=== PATIENT | male | born 1985 | race Hispanic/Latino ===

== ENCOUNTER 2020-06-19 04:05 | Emergency (ER) | payer SELFPAY ==
[2020-06-19] MEDS ORDERED: IPRATROPIUM/ALBUTEROL 3 ML VIAL NEB ONE (04:37)
[2020-06-19] MEDS: SODIUM CHLORIDE 0.9% (FLUSH) 10 ML SYG IV PRN ×2 (04:37→04:42)
[2020-06-19] MEDS ORDERED: ALBUTEROL SULFATE 2.5 MG/3 ML VIAL NEB ONE (04:37)
--- NOTE | 2020-06-19 04:40 | ED.PDOC ---
History of Present Illness - General Chief Complaint: Respiratory Problem Stated Complaint: resp distress Time Seen by Provider: 06/19/20 04:36 Source: RN notes reviewed, Vital Signs reviewed, correction records Exam Limitations: clinical condition, physical impairment - Pt with a trach in place and ith anoxic branin injury and doesn't verbally communicate. - History of Present Illness Initial Comments: Patient is a 35-year-old male with an anoxic brain injury and had presented stroke the correction with complaints of tachycardia and bleeding from his trach. Patient is unable to communicate with me and therefore history of present illness and review of systems is limited. Timing/Duration: unsure Severity: mild Improving Factors: nothing Worsening Factors: nothing Associated Symptoms: cough Allergies/Adverse Reactions: Allergies NO KNOWN ALLERGY Allergy (Verified 06/19/20 04:12) Home Medications: Ambulatory Orders Acetaminophen [Pain Relief Extra Strengt] 500 mg PO PRN PRN 06/19/20 Dextromethorphan-Guaifenesin [Giltuss Cough & Chest Con 20-200 mg/10Ml] 1 liq PO PRN 06/19/20 Folic Acid 1 mg PO DAILY 06/19/20 Heparin Sodium (Porcine) [Heparin Sodium] 5,000 unit IJ TID 06/19/20 LORazepam [Ativan] 1 mg IV PRN 06/19/20 Lactulose 30 mg PO BID 06/19/20 Levetiracetam 1000 mg/100Ml 1,000 mg IV DAILY 06/19/20 Metformin HCl [Metformin Hydrochloride] 500 mg PO BID 06/19/20 Metoprolol Tartrate 50 mg PO BID 06/19/20 Pantoprazole Sodium 40 mg IV DAILY 06/19/20 Potassium Chloride [Potassium Chloride ER] 20 meq PO DAILY 06/19/20 Spironolactone 50 mg PO DAILY 06/19/20 Thiamine HCl Inj 200 mg IV DAILY 06/19/20 diltiaZEM DRIP [Cardizem Drip] 125 mg IV DAILY 06/19/20 Review of Systems - Review of Systems Constitutional: States: see HPI. Denies: chills, fever, malaise, weakness EENTM: States: other - Pannus with mild bleeding from tracheostomy site Respiratory: States: see HPI, cough, short of breath. Denies: stridor, wheezing Unable to Obtain Due To: intubated, clinical condition Past Medical History (General) - Patient Medical History Hx Congestive Heart Failure: No Hx Diabetes: Yes Family Medical History - Family History Father Hx Family Diabetes: Yes Physical Exam - Physical Exam General Appearance: Anxious, Obese, Well Developed, Well Hydrated, Well Nourished Eye Exam: bilateral abnormal EOM Ears, Nose, Throat: normal ENT inspection Neck: limited range of motion, other - Patient with a trach in place with some mild frothy pink sputum in the trach. Respiratory: respiratory distress - Mild, decreased breath sounds - Diffusely throughout, other - Patient with hiccups and intermittent respiratory pauses for 8 to 10 seconds Cardiovascular/Chest: no edema, no murmur, tachycardia Peripheral Pulses: radial,right: 2+, radial,left: 2+ Gastrointestinal/Abdominal: normal bowel sounds, non tender, distended - Patient with an umbilical hernia. Back Exam: no CVA tenderness, no vertebral tenderness Extremity: normal capillary refill, pelvis stable Neurologic: other - Patient is noncommunicative. He will open his eyes to noxious stimulation. Skin Exam: normal color, warm/dry Lymphatic: no adenopathy Progress - Progress Progress: Differential diagnosis: Pneumonia, bronchitis, tracheal erosion, sepsis, trauma to the trachea from the tracheostomy among others. 06/19/20 05:42 Patient with essentially benign exam. No indication pneumonia. The patient is afebrile. Tracheostomy tube has been suctioned clear and now there is only some mild pink frothy sputum in the trachea tube. There is no white count. There is no left shift. Chest x-ray does not show ed pneumonia. I doubt pneumonia. Mildly elevated lactic acid 2.2. Patient has extremely concentrated urine with budding yeast. It is possible the patient is septic though I doubt it as he is afebrile and mildly tachycardic. We will plan on giving him a liter of normal saline to see if this improves his heart rate. Will reassess once the fluid is in. 06/19/20 06:39 Plan repeat lactic acid after IV fluids, 1 L, have infused. Long discussion with the father who attended medical school in [place], but is not a physician here in the [place]. Did discuss with the father that pneumonia is a possibility but unlikely. He inquired as to whether the patient would be admitted here or transfer to a larger hospital. I did discuss with him the possibility of admission versus return to the correction depending on how the patient appears after IV fluids and repeat lactic acid. He seems satisfied with the plan of care at this point in time. Baljinder Zamarripa - Results/Orders Results/Orders: EXAM DESCRIPTION: Chest,1 View CLINICAL HISTORY: BLEEDING AND FROTHY DISCHARGE FROM TRACH COMPARISON: None. FINDINGS: Single frontal view of the chest. Tubes and lines: Tracheostomy. Right arm PICC with tip in the SVC. Leads overlie the chest. Cardiomediastinal silhouette: Cardiomegaly. Low lung volumes. Lungs: Patchy and linear right basilar opacities. No pneumothorax or large effusion. Bones: No acute osseous abnormality. Upper abdomen: No abnormality identified. IMPRESSION: 1. Patchy bibasilar opacities may be related to low lung volumes and atelectasis however developing pneumonic process could produce this appearance. 2. Cardiomegaly. Electronically signed by: Ky Salazar 06/19/2020 4:50 AM 06/19/20 04:12 IV Care:Saline Lock per Protoc QSHIFT Telemetry .ONCE Sodium Chloride 0.9% (Flush) [Saline Flush Syringe] 10 ml IV PRN PRN Pulse Oximetry Assessment DAILY 06/19/20 04:15 EKG STAT 06/19/20 04:41 Mechanical Ventilation DAILY 06/19/20 04:48 BLOOD CULTURE Stat 06/19/20 05:24 SVN/Updraft Therapy ONCE 06/19/20 09:00 Pulse Ox Daily Laboratory Results - last 24 hr 06/19/20 06/19/20 06/19/20 04:20 04:20 04:20 WBC 7.7 RBC 3.38 L Hgb 10.2 L Hct 30.1 L MCV 89.2 MCH 30.3 MCHC 34.0 RDW 16.9 H Plt Count 187 MPV 11.1 H Absolute Neuts (auto) 5.80 Absolute Lymphs (auto) 0.90 L Absolute Monos (auto) 0.80 Absolute Eos (auto) 0.20 Absolute Basos (auto) 0.10 Neutrophils % 75.8 Lymphocytes % 11.2 L Monocytes % 10.0 H Eosinophils % 2.3 Basophils % 0.7 Sodium 135 Potassium 3.9 Chloride 107 Carbon Dioxide 20 L Anion Gap 11.9 L BUN 14 Creatinine 0.46 L BUN/Creatinine Ratio 30.4 H Random Glucose 139 H Serum Osmolality 272.8 L Lactic Acid 2.2 Calcium 8.4 Total Bilirubin 1.1 H AST 106 H ALT 61 H Alkaline Phosphatase 121 B-Natriuretic Peptide 45.5 Serum Total Protein 7.8 Albumin 2.6 L Globulin 5.2 H Albumin/Globulin Ratio 0.5 L Urine Color Urine Appearance Urine pH Ur Specific [place] Urine Protein Urine Glucose (UA) Urine Ketones Urine Blood Urine Nitrite Urine Bilirubin Urine Urobilinogen Ur Leukocyte Esterase Urine RBC Urine WBC Ur Epithelial Cells Urine Bacteria Urine Yeast 06/19/20 04:55 WBC RBC Hgb Hct MCV MCH MCHC RDW Plt Count MPV Absolute Neuts (auto) Absolute Lymphs (auto) Absolute Monos (auto) Absolute Eos (auto) Absolute Basos (auto) Neutrophils % Lymphocytes % Monocytes % Eosinophils % Basophils % Sodium Potassium Chloride Carbon Dioxide Anion Gap BUN Creatinine BUN/Creatinine Ratio Random Glucose Serum Osmolality Lactic Acid Calcium Total Bilirubin AST ALT Alkaline Phosphatase B-Natriuretic Peptide Serum Total Protein Albumin Globulin Albumin/Globulin Ratio Urine Color Sarina Urine Appearance Cloudy Urine pH 6.0 Ur Specific [place] >= 1.030 Urine Protein >=300 H Urine Glucose (UA) Negative Urine Ketones Trace Urine Blood Large H Urine Nitrite Negative Urine Bilirubin Small H Urine Urobilinogen 1.0 Ur Leukocyte Esterase Negative Urine RBC >50 H Urine WBC 1-3 Ur Epithelial Cells 0 Urine Bacteria Rare Urine Yeast 3+ budding EKG performed on 19 June 2020 at 043 2 hours: Sinus tachycardia at 116 bpm, normal axis deviation, no ST or T wave changes, otherwise normal EKG. No comparison EKG available at this time. Departure - Departure Clinical Impression: Hemorrhage from tracheostomy stoma, Tachycardia, Yeast UTI Time of Disposition: 06:51 Condition: Fair Departure Forms: ED Discharge - Pt. Copy, Patient Portal Self Enrollment Referrals: ENRIKE JARQUIN [Primary Care Provider] - 1-2 Weeks Home Medications: Ambulatory Orders Acetaminophen [Pain Relief Extra Strengt] 500 mg PO PRN PRN 06/19/20 Dextromethorphan-Guaifenesin [Giltuss Cough & Chest Con 20-200 mg/10Ml] 1 liq PO PRN 06/19/20 Folic Acid 1 mg PO DAILY 06/19/20 Heparin Sodium (Porcine) [Heparin Sodium] 5,000 unit IJ TID 06/19/20 LORazepam [Ativan] 1 mg IV PRN 06/19/20 Lactulose 30 mg PO BID 06/19/20 Levetiracetam 1000 mg/100Ml 1,000 mg IV DAILY 06/19/20 Metformin HCl [Metformin Hydrochloride] 500 mg PO BID 06/19/20 Metoprolol Tartrate 50 mg PO BID 06/19/20 Pantoprazole Sodium 40 mg IV DAILY 06/19/20 Potassium Chloride [Potassium Chloride ER] 20 meq PO DAILY 06/19/20 Spironolactone 50 mg PO DAILY 06/19/20 Thiamine HCl Inj 200 mg IV DAILY 06/19/20 diltiaZEM DRIP [Cardizem Drip] 125 mg IV DAILY 06/19/20
--- NOTE | 2020-06-19 04:51 | RAD ---
EXAM DESCRIPTION: Chest,1 View CLINICAL HISTORY: BLEEDING AND FROTHY DISCHARGE FROM TRACH COMPARISON: None. FINDINGS: Single frontal view of the chest. Tubes and lines: Tracheostomy. Right arm PICC with tip in the SVC. Leads overlie the chest. Cardiomediastinal silhouette: Cardiomegaly. Low lung volumes. Lungs: Patchy and linear right basilar opacities. No pneumothorax or large effusion. Bones: No acute osseous abnormality. Upper abdomen: No abnormality identified. IMPRESSION: 1. Patchy bibasilar opacities may be related to low lung volumes and atelectasis however developing pneumonic process could produce this appearance. 2. Cardiomegaly. Electronically signed by: Ky Salazar 06/19/2020 4:50 AM CDT
[2020-06-19] MEDS ORDERED: SODIUM CHLORIDE 0.9% 1000ML 1,000 ML IVS ONE ×2 (05:45→06:56)
[2020-06-19] MEDS ORDERED: SODIUM CHLORIDE 0.9% 1000ML 1,000 ML ONE ×2 (05:46→06:52)
[2020-06-19] MEDS ORDERED: FLUCONAZOLE 150 MG TAB PO ONE (07:00)
--- NOTE | 2020-06-19 07:24 | ED.PDOC ---
History of Present Illness - General Chief Complaint: Respiratory Problem Stated Complaint: resp distress Time Seen by Provider: 06/19/20 04:36 - History of Present Illness Initial Comments: obtained sign out from Dr. Lomeli, 35 yo M with anoxic brain injury after ETOH withdrawal seizure comes in with issues with trach. Patient not been here prior. No reported fever, cough, increase sputum. Allergies/Adverse Reactions: Allergies NO KNOWN ALLERGY Allergy (Verified 06/19/20 04:12) Home Medications: Ambulatory Orders Acetaminophen [Pain Relief Extra Strengt] 500 mg PO PRN PRN 06/19/20 Dextromethorphan-Guaifenesin [Giltuss Cough & Chest Con 20-200 mg/10Ml] 1 liq PO PRN 06/19/20 Fluconazole 150 mg PO ONCE #1 tab 06/19/20 Folic Acid 1 mg PO DAILY 06/19/20 Heparin Sodium (Porcine) [Heparin Sodium] 5,000 unit IJ TID 06/19/20 LORazepam [Ativan] 1 mg IV PRN 06/19/20 Lactulose 30 mg PO BID 06/19/20 Levetiracetam 1000 mg/100Ml 1,000 mg IV DAILY 06/19/20 Metformin HCl [Metformin Hydrochloride] 500 mg PO BID 06/19/20 Metoprolol Tartrate 50 mg PO BID 06/19/20 Pantoprazole Sodium 40 mg IV DAILY 06/19/20 Potassium Chloride [Potassium Chloride ER] 20 meq PO DAILY 06/19/20 Spironolactone 50 mg PO DAILY 06/19/20 Thiamine HCl Inj 200 mg IV DAILY 06/19/20 diltiaZEM DRIP [Cardizem Drip] 125 mg IV DAILY 06/19/20 Review of Systems - Review of Systems Unable to Obtain Due To: clinical condition Past Medical History (General) - Patient Medical History Hx Seizures: Yes - due to alcohol withdrawal Hx of COPD: - vent dependent Hx Cardiac Disorders: Yes - HX Cardiac arrest Hx Congestive Heart Failure: No Hx Hypertension: Yes Hx Diabetes: Yes Hx Gastroesophageal Reflux: - liver cirrhosis - Vaccination History Hx Tetanus, Diphtheria Vaccination: No Hx Influenza Vaccination: No Hx Pneumococcal Vaccination: No - Social History Hx Tobacco Use: No Hx Alcohol Use: Yes - Activities of Daily Living [facility] applicable[facility] Family Medical History - Family History Father Hx Family Diabetes: Yes Physical Exam - Physical Exam General Appearance: Obese, Other - intubated, Neck: supple, normal inspection Respiratory: chest non-tender, lungs clear, normal breath sounds, no respiratory distress, no accessory muscle use Cardiovascular/Chest: normal peripheral pulses, no edema, no gallop, no JVD, no murmur Peripheral Pulses: radial,right: 2+, radial,left: 2+, dorsalis pedis,right: 2+, dorsalis pedis,left: 2+ Gastrointestinal/Abdominal: normal bowel sounds, non tender, soft Rectal Exam: deferred Extremity: normal inspection Skin Exam: normal color, warm/dry, other - seborrheic dermatitis Lymphatic: no adenopathy Progress - Progress Progress: 06/19/20 07:24 Patient does not appear to be in any resp distress. Yeast most likely colonization, however, will give one time dose of fluconazole. No leukoc ytosis. pending repeat lactic acid. PSI is 65 (current resp 20), [id number] -1. After review xray it appears more like atelectasis and given his recent pneumonia, it will take time before that resolves on xray. 06/19/20 07:26 repeat lactic acid is 1.8. Will give patient home medication of metoprolol, as well as, another bolus IVF. Elevated d-dimer. CTA 1. Very suboptimal examination with small lung volumes respiratory motion artifact and diminished contrast enhancement with no gross evidence of proximal or Central pulmonary embolus. 2. Bibasilar volume loss in each posterior lung base consis tent with atelectasis/pneumonitis. 3. Cardiomegaly without pericardial effusion. 4. Large distended azygos vein, uncertain significance. 5. Hepatosplenomegaly. Father made aware of CT findings. The data reviewed when caring for this patient included: nurse notes, prior records, etc. The history and assessments from nurses notes were reviewed and considered, and the patient's home medication list was also reviewed and considered. My assessment and the results of testing completed here in the ED were discussed with the family. All questions were answered, and they express understanding of my assessment and the plan. They have been instructed to return if their symptoms worsen, and have been asked to follow up with their primary care physician to recheck today's presenting complaint. Return precautions given. I have reviewed medication, benefits, alternatives and side effects with family. Phyllis Brizuela DO #[id number] HR currently 88. Patient discharged back to correction in stable condition. 06/19/20 16:48 Departure - Departure Clinical Impression: Hemorrhage from tracheostomy stoma, Tachycardia, Yeast UTI Time of Disposition: 08:30 Disposition: Discharge to SNF Condition: Fair Departure Forms: ED Discharge - Pt. Copy, Patient Portal Self Enrollment Instructions: Urinary Tract Infections in Adults Referrals: ENRIKE JARQUIN [Primary Care Provider] - 1-2 Days Prescriptions: Fluconazole 150 mg PO ONCE #1 tab Home Medications: Ambulatory Orders Acetaminophen [Pain Relief Extra Strengt] 500 mg PO PRN PRN 06/19/20 Dextromethorphan-Guaifenesin [Giltuss Cough & Chest Con 20-200 mg/10Ml] 1 liq PO PRN 06/19/20 Fluconazole 150 mg PO ONCE #1 tab 06/19/20 Folic Acid 1 mg PO DAILY 06/19/20 Heparin Sodium (Porcine) [Heparin Sodium] 5,000 unit IJ TID 06/19/20 LORazepam [Ativan] 1 mg IV PRN 06/19/20 Lactulose 30 mg PO BID 06/19/20 Levetiracetam 1000 mg/100Ml 1,000 mg IV DAILY 06/19/20 Metformin HCl [Metformin Hydrochloride] 500 mg PO BID 06/19/20 Metoprolol Tartrate 50 mg PO BID 06/19/20 Pantoprazole Sodium 40 mg IV DAILY 06/19/20 Potassium Chloride [Potassium Chloride ER] 20 meq PO DAILY 06/19/20 Spironolactone 50 mg PO DAILY 06/19/20 Thiamine HCl Inj 200 mg IV DAILY 06/19/20 diltiaZEM DRIP [Cardizem Drip] 125 mg IV DAILY 06/19/20 Print Language: Estonian
[2020-06-19] MEDS ORDERED: SODIUM CHLORIDE 0.9% 1000ML 1,000 ML IVS PRN (07:54)
[2020-06-19] MEDS ORDERED: METOPROLOL TARTRATE 50 MG TAB PO ONE (08:01)
[2020-06-19] MEDS ORDERED: LORazepam 0.5 MG TAB PO ONE (08:26)
--- NOTE | 2020-06-19 11:24 | CT ---
EXAM DESCRIPTION: CTA Chest CLINICAL HISTORY: 35 years, Male, sob COMPARISON: None TECHNIQUE: Rapid bolus administration of nonionicIV contrast was performed with thin-section axial scanning of the chest performed in a dynamic fashion. Reconstructed multiplanar and three dimensional MIP and/or VRT images were created on a separate dedicated workstation were reviewed along with the source axial images and stored in the patient's medical record. Stenoses were evaluated using the NASCET criteria. This exam was performed according to our departmental dose-optimization program, which includes automated exposure control, adjustment of the mA and/or kV according to patient size and/or use of iterative reconstruction technique. Technical quality of the examination is limited by diminished contrast enhancement, large body habitus, respiratory motion artifact, and extremely small lung volumes. FINDINGS: The pulmonary outflow tract, main pulmonary arteries, lobar branches, and proximal most portions of the segmental branches demonstrate no evidence of filling defect or occlusion with suboptimal visualization distal to this level. No evidence of large or proximal pulmonary embolus noted. Tracheostomy tube is noted in satisfactory position in the proximal trachea. Bibasilar atelectasis/pneumonitis at each posterior lung base is present with thickening along the inferior extent of the right major fissure and to a lesser extent on the left. No dense consolidation involving the upper lobes or right middle lobe noted. Marked cardiomegaly is present without pericardial effusion. Below the diaphragm hepatosplenomegaly noted. Marked dilation of the azygos vein, of uncertain significance is present. Sternal and demonstrates a step-off in the sagittal projection but this appears to be related to patient motion artifact rather than a fracture. IMPRESSION: 1. Very suboptimal examination with small lung volumes respiratory motion artifact and diminished contrast enhancement with no gross evidence of proximal or Central pulmonary embolus. 2. Bibasilar volume loss in each posterior lung base consistent with atelectasis/pneumonitis. 3. Cardiomegaly without pericardial effusion. 4. Large distended azygos vein, uncertain significance. 5. Hepatosplenomegaly. Electronically signed by: Conner Ca MD 06/19/2020 11:22 AM CDT
[2020-06-19 12:13] VITALS: BP 140/76; TEMP 96.7; O2SAT 100
== END 2020-06-19 12:14 ==
LOC: ER 04:05
DX: J95.01 Hemorrhage from tracheostomy stoma (principal); R00.0 Tachycardia, unspecified; N39.0 Urinary tract infection, site not specified; B37.49 Other urogenital candidiasis; E11.9 Type 2 diabetes mellitus without complications; Z79.899 Other long term (current) drug therapy; Z79.84 Long term (current) use of oral hypoglycemic drugs
CPT/HCPCS: 36415; 71045; 71275; 80053; 81001; 83605; 83880; 85025; 85379; 87040; 93005; 94002; 94640; 94760; A4216; J7030; J7611; J7620

== ENCOUNTER 2020-06-30 16:21 | Emergency (ER) | payer SELFPAY ==
[2020-06-30] MEDS ORDERED: SODIUM CHLORIDE 0.9% (FLUSH) 10 ML SYG IV PRN (16:56)
--- NOTE | 2020-06-30 17:05 | ED.PDOC ---
History of Present Illness - General Chief Complaint: Respiratory Problem Stated Complaint: low sats and blood in trach Time Seen by Provider: 06/30/20 16:52 Source: RN/MD, EMS, correction records Exam Limitations: no limitations - History of Present Illness Initial Comments: CHRONIC TRACHEOSTOMY VENTILATOR PT, NEW PT TO [facility] FOR APPROX 3 WKS. [facility] NOTICED SPOTTING BLOOD ON TRACHEOSTOMY SUCTION TUBE AND REPORTED LOW SATS, THUS HAD EMS BRING TO ER. CHRONIC VEGETATIVE STATE FOR H/O ANOXIC BRAIN INJURY FROM ETOH WITHDRAWAL SEIZURES. Severity: moderate Improving Factors: nothing Worsening Factors: nothing Allergies/Adverse Reactions: Allergies NO KNOWN ALLERGY Allergy (Verified 06/30/20 16:41) Home Medications: Ambulatory Orders Acetaminophen [Pain Relief Extra Strengt] 1,000 mg GT PRN PRN 06/19/20 Dextromethorphan-Guaifenesin [Giltuss Cough & Chest Con 20-200 mg/10Ml] 1 liq GT PRN PRN 06/19/20 Folic Acid 1 mg GT DAILY 06/19/20 LORazepam [Ativan] 1 mg GT PRN PRN 06/19/20 Lactulose 30 ml PO TID 06/19/20 Metformin HCl [Metformin Hydrochloride] 500 mg GT BID 06/19/20 Metoprolol Tartrate 50 mg GT BID 06/19/20 Potassium Chloride [Potassium Chloride ER] 20 meq GT BID 06/19/20 Spironolactone 100 mg GT DAILY 06/19/20 Betamethasone Valerate 0.1 % EX DAILY 06/30/20 Bisacodyl [Dulcolax] 10 mg TN PRN PRN 06/30/20 Docusate Sodium 100 mg GT BID PRN 06/30/20 Fluconazole 150 mg GT DAILY 06/30/20 Nystatin Powder [Mycostatin] 1 gm TOP PRN PRN 06/30/20 Promethazine HCl 25 mg GT Q8H PRN 06/30/20 Review of Systems - Review of Systems Unable to Obtain Due To: clinical condition - CHRONIC VEGETATIVE STATE FROM ANOXIC BRAIN INJURY. Past Medical History (General) - Patient Medical History Hx Seizures: Yes - due to alcohol withdrawal Hx of COPD: Yes - vent dependent Hx Cardiac Disorders: Yes - HX Cardiac arrest Hx Congestive Heart Failure: No Hx Hypertension: Yes Hx Diabetes: Yes Hx Gastroesophageal Reflux: - liver cirrhosis - Vaccination History Hx Tetanus, Diphtheria Vaccination: No Hx Influenza Vaccination: No Hx Pneumococcal Vaccination: No Immunizations Comment: unknown immunization status - Social History Hx Tobacco Use: No Hx Alcohol Use: Yes - hx of ETOH abuse - Activities of Daily Living [facility] ([facility] applicable):: [facility] Family Medical History - Family History Father Family History: Unknown Living Status: Unknown Hx Family Diabetes: Yes Physical Exam - Physical Exam General Appearance: Unkempt - POS THICK DANDRUFF IN HAIR. , Other - EYES CLOSED, VENTILATED RESPIRATIONS. Eye Exam: bilateral other - EYES CLOSED. Ears, Nose, Throat: normal pharynx Neck: other - TRACHEOSTOMY TUBE IS PRESENT. POS SCANT BLOOD IN THE SUCTION FROM [facility]. Respiratory: lungs clear, normal breath sounds, no respiratory distress - BUT PT IS "OVERBREATHING" ON THE VENT - AT RATE OF 32, THEN DOWN TO 26., no accessory muscle use Cardiovascular/Chest: normal peripheral pulses, no JVD, no murmur, other - REGULAR RHYTHM, TACHYCARDIC RATE. Peripheral Pulses: radial,right: 2+, radial,left: 2+, dorsalis pedis,right: 2+, dorsalis pedis,left: 2+, posterior tibialis,right: 2+, posterior tibialis,left: 2+ Gastrointestinal/Abdominal: normal bowel sounds, soft, no organomegaly, no pulsatile mass Rectal Exam: deferred Back Exam: no CVA tenderness Extremity: no pedal edema, no calf tenderness Neurologic: other - NOT COMMANDING, C/W CHRONIC BASELINE. Skin Exam: normal color, warm/dry Lymphatic: no adenopathy Progress - Results/Orders Results/Orders: LLL PNE PER CTA - STARTING [facility] FOR VENTILATOR-ASSOCIATED PNE. TACHYPNEA (32 ON ADMISSION, NOW 18) - IMPROVING. SPOTTING BLOOD ON TRACH SUCTION. TRANSFERRING TO [facility] FOR VENTILATOR TX OF PNE. DR. MORGAN ER, ACCEPTING FURTHER CARE. COVID NEG. CXR LLL PNE VS ATELECTASIS. EKG SINUS TACHY. CBC UNREMARKABLE. CMP Na LOW AT 131 - RECEIVING NS. BILI ELEV AT 2.2, HAS KNOWN CIRRHOSIS. BNP NEG. COAGS INR 1.28. D-DIMER ELEV AT 900, THUS GOT CTA, WHICH WAS NEG FOR P.E. BUT POS FOR LLL PNE. BCx PENDING. LACTIC ACID 2.3 - BOLUSED NS. PT'S VS ARE STABLE FOR TRFR TO [facility]. THANK YOU, [facility], FOR TAKING FURTHER CARE OF THIS PT. - EKG/XRAY/CT EKG: Sinus, Tachy Departure - Departure Clinical Impression: Hypoxia, Tachypnea, Hyponatremia, Bilirubinemia, D-dimer, elevated, Lactic acidosis, Tracheostomy hemorrhage, Sinus tachycardia by electrocardiogram, Chronic brain damage Pneumonia involving left lung Qualifiers: Pneumonia type: due to unspecified organism Lung location: lower lobe of lung Qualified Code(s): J18.9 - Pneumonia, unspecified organism Disposition: Discharge to Home or Self Care Condition: Fair Departure Forms: ED Discharge - Pt. Copy, Patient Portal Self Enrollment Referrals: ENRIKE JARQUIN [Primary Care Provider] - 1-2 Weeks Home Medications: Ambulatory Orders Acetaminophen [Pain Relief Extra Strengt] 1,000 mg GT PRN PRN 06/19/20 Dextromethorphan-Guaifenesin [Giltuss Cough & Chest Con 20-200 mg/10Ml] 1 liq GT PRN PRN 06/19/20 Folic Acid 1 mg GT DAILY 06/19/20 LORazepam [Ativan] 1 mg GT PRN PRN 06/19/20 Lactulose 30 ml PO TID 06/19/20 Metformin HCl [Metformin Hydrochloride] 500 mg GT BID 06/19/20 Metoprolol Tartrate 50 mg GT BID 06/19/20 Potassium Chloride [Potassium Chloride ER] 20 meq GT BID 06/19/20 Spironolactone 100 mg GT DAILY 06/19/20 Betamethasone Valerate 0.1 % EX DAILY 06/30/20 Bisacodyl [Dulcolax] 10 mg TN PRN PRN 06/30/20 Docusate Sodium 100 mg GT BID PRN 06/30/20 Fluconazole 150 mg GT DAILY 06/30/20 Nystatin Powder [Mycostatin] 1 gm TOP PRN PRN 06/30/20 Promethazine HCl 25 mg GT Q8H PRN 06/30/20 Transfer to Outside Facility - Transfer Information Decision to Transfer Date: 06/30/20 Decision to Transfer Time: 20:20 Reason for Transfer: specialized care not available - TRACHEOSTOMY VENTILATOR- DEPENDENT Accepting Provider:: DR. MORGAN Accepting Facility: [facility]
--- NOTE | 2020-06-30 17:21 | RAD ---
EXAM DESCRIPTION: Chest,1 View CLINICAL HISTORY: 35 years Male BLOOD ON TRACH SUCTION; ON CHRONIC TRACH VENT. COMPARISON: 06/19/2020. FINDINGS: There is a tracheostomy tube. The cardiomediastinal silhouette appears stable. Mild atelectatic changes at the left lung base. The atelectatic changes on the previous study at the right lung base appear improved. No consolidating infiltrates or pleural effusions. No pneumothorax. IMPRESSION: Mild atelectatic changes at the left lung base. Electronically signed by: Baljinder Rivers MD 06/30/2020 5:19 PM CDT
--- NOTE | 2020-06-30 19:07 | CT ---
PROCEDURE: CT Angiography Chest With Intravenous Contrast CLINICAL INDICATION: The patient is 35 years old and is Male; ELEV D-DIMER, TACHYPNEA, CONCERN FOR PE. TECHNIQUE: Axial computed tomographic angiography images of the chest with intravenous contrast. This CT exam was performed using one or more of the following dose reduction techniques: automated exposure control, adjustment of the mA and/or kV according to patient size, and/or use of iterative reconstruction technique. 3D and MIP reconstructed images were created and reviewed. DLP: 723 mGy*cm COMPARISON: CTA chest dated June 19, 2020. FINDINGS: PULMONARY ARTERIES: Suboptimal evaluation of distal pulmonary arterial tree due to poor bolus timing and respiratory motion. No central or proximal pulmonary embolus. AORTA: No acute findings. No thoracic aortic aneurysm. LUNGS: Improved aeration of the right lung base. Continued evidence of left lung base opacity concerning for atelectasis or consolidation. PLEURAL SPACE: Unremarkable. No significant effusion. No pneumothorax. HEART: Unchanged cardiomegaly. No significant pericardial effusion. No evidence of RV dysfunction. BONES/JOINTS: Continuing evidence of multiple healing left rib fractures with surrounding callus. No dislocation. SOFT TISSUES: Unremarkable. LYMPH NODES: Unremarkable. No enlarged lymph nodes. ADRENALS: Unchanged 1.4 cm left adrenal nodule. TUBES, LINES AND DEVICES: Unchanged position of tracheostomy tube. IMPRESSION: 1. Suboptimal evaluation of distal pulmonary arterial tree due to poor bolus timing and respiratory motion. No central or proximal pulmonary embolus. 2. Improved aeration of the right lung base. Continued evidence of left lung base opacity concerning for atelectasis or consolidation. 3. Continuing evidence of multiple healing left rib fractures with surrounding callus. 4. Unchanged cardiomegaly. 5. Unchanged 1.4 cm left adrenal nodule. Electronically signed by: Rai Mak DO 06/30/2020 7:05 PM CDT
[2020-06-30] MEDS ORDERED: SODIUM CHLORIDE 0.9% 1000ML 1,000 ML ONE (19:21)
[2020-06-30] MEDS ORDERED: SODIUM CHLORIDE 0.9% 1000ML 1,000 ML IVS ONE (19:41)
[2020-06-30] MEDS ORDERED: IPRATROPIUM/ALBUTEROL 3 ML VIAL NEB ONE ×2 (20:05)
[2020-06-30] MEDS ORDERED: PIPERACILLIN/TAZOBACTAM 4.5 GM in SODIUM CHLORIDE 0.9% 100ML 100 ML IVPB ONE (20:06)
[2020-06-30 21:20] VITALS: BP 128/87; TEMP 97.3; O2SAT 97
== END 2020-06-30 21:10 | disposition home or self-care (01) ==
LOC: ER 16:21
DX: J18.9 Pneumonia, unspecified organism (principal); R09.02 Hypoxemia; E87.1 Hypo-osmolality and hyponatremia; R79.89 Other specified abnormal findings of blood chemistry; R00.0 Tachycardia, unspecified; J95.01 Hemorrhage from tracheostomy stoma; E87.2 Acidosis; E80.6 Other disorders of bilirubin metabolism; R40.3 Persistent vegetative state; G93.1 Anoxic brain damage, not elsewhere classified; K70.30 Alcoholic cirrhosis of liver without ascites; I10 Essential (primary) hypertension; E11.9 Type 2 diabetes mellitus without complications; F10.11 Alcohol abuse, in remission; R56.9 Unspecified convulsions; Y83.8 Other surgical procedures as the cause of abnormal reaction of the patient, or of later complication, without mention of misadventure at the time of the procedure; Z20.828 Contact with and (suspected) exposure to other viral communicable diseases; Z99.11 Dependence on respirator [ventilator] status; Z86.74 Personal history of sudden cardiac arrest; Z79.899 Other long term (current) drug therapy; Z79.84 Long term (current) use of oral hypoglycemic drugs
CPT/HCPCS: 36415; 71045; 71275; 80053; 83605; 83880; 85025; 85379; 85610; 85730; 87040; 87635; 93005; 94002; 94640; J2060; J2543; J7030; J7050; J7620

== ENCOUNTER 2020-10-03 00:14 | Emergency (ER) | payer MEDICAID, OTHER ==
[2020-10-03] MEDS ORDERED: SODIUM CHLORIDE 0.9% (FLUSH) 10 ML SYG IV PRN (00:25)
--- NOTE | 2020-10-03 00:26 | ED.PDOC ---
History of Present Illness - General Time Seen by Provider: 10/03/20 00:25 Source: EMS, [facility] - History of Present Illness Initial Comments: 35-year-old male with past medical history of anoxic brain injury, persistent vegetative state, trach/vent dependent, G-tube dependent, hx of alcoholic cirrhosis who is brought in by EMS from [facility] for chief complaint of increased respiratory effort and hypoxia. Nursing staff reported symptoms began late this evening just prior to ED arrival. Patient was noted to have increased respiratory effort and SPO2 was noted to be 85% on his usual vent settings. He was also reported to have tachycardia and be coughing more than usual. EMS reported that they suctioned small amount of blood from his trach a few times and provided some bagging in route and reported 100% SPO2 in transit. On arrival here patient noted to also have 100% SPO2 on his baseline 32% FiO2 setting. No noted respiratory distress. He was noted to have a small amount of bleeding from a small lip lac to the right inner lip. ED RN on arrival also reported suctioning large mucous plug from trach. No recently reported fevers, chills, pains, n/v/d from the [place]. Pt reportedly recently tested negative for COVID-19. He was begun on doxycycline BID yesterday for possible pneumonia. Patient was recently admitted to [facility] 05/2020 following prolonged complicated hospital stay. Reportedly patient had a complicated ?alcohol withdrawal seizure with anoxic brain injury. He had a prolonged ICU stay complicated by ARDS. He underwent trach and G-tube placement prior to discharge to [place] facility. At baseline he is nonverbal. Does have intermittent spontaneous intermittent movement of all extremities. He is not able to communicate in any way or answer questions or follow commands. Prior notes here also mention hx of known alcoholic cirrhosis. Pt was transferred to [facility] in 06/2020 for LLL PNA after presenting in a similar manner at that time to this ED. Allergies/Adverse Reactions: Allergies NO KNOWN ALLERGY Allergy (Verified 06/30/20 16:41) Home Medications: Ambulatory Orders Acetaminophen [Pain Relief Extra Strengt] 1,000 mg GT PRN PRN 06/19/20 Dextromethorphan-Guaifenesin [Giltuss Cough & Chest Con 20-200 mg/10Ml] 1 liq GT PRN PRN 06/19/20 Folic Acid 1 mg GT DAILY 06/19/20 LORazepam [Ativan] 1 mg GT PRN PRN 06/19/20 Lactulose 30 ml PO TID 06/19/20 Metformin HCl [Metformin Hydrochloride] 500 mg GT BID 06/19/20 Metoprolol Tartrate 50 mg GT BID 06/19/20 Potassium Chloride [Potassium Chloride ER] 20 meq GT BID 06/19/20 Spironolactone 100 mg GT DAILY 06/19/20 Betamethasone Valerate 0.1 % EX DAILY 06/30/20 Bisacodyl [Dulcolax] 10 mg ME PRN PRN 06/30/20 Docusate Sodium 100 mg GT BID PRN 06/30/20 Fluconazole 150 mg GT DAILY 06/30/20 Nystatin Powder [Mycostatin] 1 gm TOP PRN PRN 06/30/20 Promethazine HCl 25 mg GT Q8H PRN 06/30/20 Review of Systems - Review of Systems Review of Systems: 10/03/20 00:59 as per HPI, otherwise limited given pt nonverbal All other Systems: Reviewed and Negative Past Medical History (General) - Patient Medical History Hx Seizures: Yes - due to alcohol withdrawal Hx of COPD: Yes - vent dependent Hx Cardiac Disorders: Yes - HX Cardiac arrest Hx Congestive Heart Failure: No Hx Hypertension: Yes Hx Diabetes: Yes Hx Gastroesophageal Reflux: - liver cirrhosis - Vaccination History Hx Tetanus, Diphtheria Vaccination: No Hx Influenza Vaccination: No Hx Pneumococcal Vaccination: No - Social History Hx Tobacco Use: No Hx Alcohol Use: Yes - hx of ETOH abuse Family Medical History - Family History Father Family History: Unknown Living Status: Unknown Hx Family Diabetes: Yes Physical Exam - Physical Exam General Appearance: Alert, Comfortable, No apparent distress Eye Exam: bilateral normal Ears, Nose, Throat: other - small R inner lip mucosal laceration with scant bleeding Neck: other - trach in place, no noted discharge or bleeding Respiratory: no respiratory distress, no accessory muscle use, rales - bibasilar rales w/o wheezing or rhonchi noted Cardiovascular/Chest: normal peripheral pulses, no edema, no gallop, no JVD, no murmur, tachycardia Peripheral Pulses: radial,right: 2+, radial,left: 2+ Gastrointestinal/Abdominal: non tender, soft, no organomegaly, other - g-tube in place Extremity: non-tender, normal inspection, no pedal edema, no calf tenderness Neurologic: other - at baseline, pt appears awake and alert but is nonverbal, not able to follow commands or answer questions. Does seem to have intermittent small spontaneous movement of all extremities Skin Exam: normal color, warm/dry Progress - Progress Progress: 10/03/20 01:02 Acute hypoxic respiratory distress -now seems resolved upon ED arrival. Suspect most likely due to mucous plugging or possibly bleeding/aspiration. Consider also pneumonia, sepsis, COVID-19, flu, ACS, PE, other -Obtain stat cardiac work-up, x-ray chest, rapid Covid and flu testing, consider CT imaging of chest 10/03/20 04:34 -Initial labs revealed normal WBC without left shift but noted to have 3% bands. Lactic acid level initially elevated to 3.0, improved only to 2.9 with 2 L NS bolus in the beginning Zosyn 4.5 g IV. The patient does have slightly elevated total bilirubin and LFTs, which appear consistent with his usual levels from cirrhosis. His rapid Covid and flu testing are negative. His urinalysis is pretty unremarkable. CT imaging of the chest, abdomen, and pelvis reveal no acute processes. There is no evidence of PE. -Although there are no obvious sources of bacterial infection, I remain con cerned for sepsis given the bandemia and lactic acidosis. Additionally patient has had persistent tachycardia and borderline hypotension with MAP between 66-72 in the ED. He does seem to have some improving heart rate and stable blood pressure on the third liter IV fluid bolus. However, feel he needs hospital admission for further IV antibiotics and monitoring. As unable to admit that patients at this facility, will need to transfer to higher level for ICU bed. We will add vancomycin as well to the treatment regimen. -Attempted transfer lines but no beds available: [facility], [facility], [facility], [facility], [facility] Will continue to call around. Pt remains stable. Continue treatment for now in ED until a hospital bed can be located. 10/03/20 05:21 -Spoke with Dr. Dickerson at [facility] ICU who accepts the pt for transfer. Asks that the patient go first through the ED for rapid COVID-19 PCR testing prior to admit. Cecil Talamantes MD Billing #[id number] 10/03/20 00:25 IV Care:Saline Lock per Protoc QSHIFT Telemetry .ONCE Sodium Chloride 0.9% (Flush) [Saline Flush Syringe] 10 ml IV PRN PRN 10/03/20 00:30 EKG STAT 10/03/20 00:40 BLOOD CULTURE Stat 10/03/20 01:28 Hold Metformin x 48Hrs [id number] 10/03/20 03:00 Catheter:Funk QSHIFT 10/03/20 04:13 Vancomycin HCl Inj 1,000 mg Vancomycin HCl Inj 500 mg Sodium Chloride 0.9% 250Ml [NS 250ml] 250 ml IVPB ONCE 10/03/20 09:00 Pulse Ox Daily Laboratory Results - last 24 hr 10/03/20 10/03/20 10/03/20 00:40 00:40 00:40 WBC 8.5 RBC 3.42 L Hgb 11.3 L Hct 32.1 L MCV 93.9 MCH 33.1 H MCHC 35.2 RDW 15.5 H Plt Count 202 MPV 9.7 Absolute Neuts (auto) Not Reportable Absolute Lymphs (auto) Not Reportable Absolute Monos (auto) Not Reportable Absolute Eos (auto) Not Reportable Neutrophils % Not Reportable Neutrophils % (Manual) 71.0 Lymphocytes % Not Reportable Lymphocytes % (Manual) 16.0 Monocytes % Not Reportable Monocytes % (Manual) 10.0 Eosinophils % Not Reportable Basophils % Not Reportable Band Neutrophils 3.0 H Platelet Estimate Normal PT INR PTT (SP) D-Dimer, Quantitative 921.0 H* Sodium 140 Potassium 5.0 Chloride 114 H Carbon Dioxide 18 L Anion Gap 13.0 BUN 30 H Creatinine 1.09 BUN/Creatinine Ratio 27.5 H Random Glucose 122 H Serum Osmolality 286.9 Lactic Acid Calcium 11.0 H Total Bilirubin 1.6 H AST 58 H ALT 32 Alkaline Phosphatase 107 B-Natriuretic Peptide 25.6 Serum Total Protein 8.6 H Albumin 2.7 L Globulin 5.9 H Albumin/Globulin Ratio 0.5 L Urine Color Urine Appearance Urine pH Ur Specific Mousie Urine Protein Urine Glucose (UA) Urine Ketones Urine Blood Urine Nitrite Urine Bilirubin Urine Urobilinogen Ur Leukocyte Esterase Urine RBC Urine WBC Ur Epithelial Cells Calcium Oxalate Crystal Urine Bacteria Urine Mucus 10/03/20 10/03/20 10/03/20 00:40 00:40 03:00 WBC RBC Hgb Hct MCV MCH MCHC RDW Plt Count MPV Absolute Neuts (auto) Absolute Lymphs (auto) Absolute Monos (auto) Absolute Eos (auto) Neutrophils % Neutrophils % (Manual) Lymphocytes % Lymphocytes % (Manual) Monocytes % Monocytes % (Manual) Eosinophils % Basophils % Band Neutrophils Platelet Estimate PT 12.7 H INR 1.28 H PTT (SP) 23.3 D-Dimer, Quantitative Sodium Potassium Chloride Carbon Dioxide Anion Gap BUN Creatinine BUN/Creatinine Ratio Random Glucose Serum Osmolality Lactic Acid 3.0 H* Calcium Total Bilirubin AST ALT Alkaline Phosphatase B-Natriuretic Peptide Serum Total Protein Albumin Globulin Albumin/Globulin Ratio Urine Color Yellow Urine Appearance Clear Urine pH 7.0 Ur Specific Mousie 1.015 Urine Protein Trace Urine Glucose (UA) Negative Urine Ketones Negative Urine Blood Negative Urine Nitrite Negative Urine Bilirubin Negative Urine Urobilinogen 0.2 Ur Leukocyte Esterase Negative Urine RBC 0-1 Urine WBC 0-1 Ur Epithelial Cells 1-3 Calcium Oxalate Crystal 1+ Urine Bacteria Rare Urine Mucus Trace 10/03/20 03:40 WBC RBC Hgb Hct MCV MCH MCHC RDW Plt Count MPV Absolute Neuts (auto) Absolute Lymphs (auto) Absolute Monos (auto) Absolute Eos (auto) Neutrophils % Neutrophils % (Manual) Lymphocytes % Lymphocytes % (Manual) Monocytes % Monocytes % (Manual) Eosinophils % Basophils % Band Neutrophils Platelet Estimate PT INR PTT (SP) D-Dimer, Quantitative Sodium Potassium Chloride Carbon Dioxide Anion Gap BUN Creatinine BUN/Creatinine Ratio Random Glucose Serum Osmolality Lactic Acid 2.9 H* Calcium Total Bilirubin AST ALT Alkaline Phosphatase B-Natriuretic Peptide Serum Total Protein Albumin Globulin Albumin/Globulin Ratio Urine Color Urine Appearance Urine pH Ur Specific Mousie Urine Protein Urine Glucose (UA) Urine Ketones Urine Blood Urine Nitrite Urine Bilirubin Urine Urobilinogen Ur Leukocyte Esterase Urine RBC Urine WBC Ur Epithelial Cells Calcium Oxalate Crystal Urine Bacteria Urine Mucus - EKG/XRAY/CT EKG: Sinus, Tachy - Pulmonary monitoring, no ST elevations or Q waves noted, axis normal, intervals normal, compared to 06/30/2020 EKG appears unchanged XRAY: chest - Per my read shows minimal patchy right basilar opacification, infection versus atelectasis. Departure - Departure Clinical Impression: Sepsis Qualifiers: Sepsis type: sepsis due to unspecified organism Sepsis acute organ dysfunction status: with acute organ dysfunction Severe sepsis acute organ dysfunction type: unspecified Severe sepsis shock status: with septic shock Qualified Code(s): A41.9 - Sepsis, unspecified organism; R65.21 - Severe sepsis with septic shock Time of Disposition: 05:41 Disposition: Discharge to Home or Self Care Condition: Poor Referrals: ENRIKE JARQUIN [Primary Care Provider] - 1-2 Weeks Home Medications: Ambulatory Orders Acetaminophen [Pain Relief Extra Strengt] 1,000 mg GT PRN PRN 06/19/20 Dextromethorphan-Guaifenesin [Giltuss Cough & Chest Con 20-200 mg/10Ml] 1 liq GT PRN PRN 06/19/20 Folic Acid 1 mg GT DAILY 06/19/20 LORazepam [Ativan] 1 mg GT PRN PRN 06/19/20 Lactulose 30 ml PO TID 06/19/20 Metformin HCl [Metformin Hydrochloride] 500 mg GT BID 06/19/20 Metoprolol Tartrate 50 mg GT BID 06/19/20 Potassium Chloride [Potassium Chloride ER] 20 meq GT BID 06/19/20 Spironolactone 100 mg GT DAILY 06/19/20 Betamethasone Valerate 0.1 % EX DAILY 06/30/20 Bisacodyl [Dulcolax] 10 mg ME PRN PRN 06/30/20 Docusate Sodium 100 mg GT BID PRN 06/30/20 Fluconazole 150 mg GT DAILY 06/30/20 Nystatin Powder [Mycostatin] 1 gm TOP PRN PRN 06/30/20 Promethazine HCl 25 mg GT Q8H PRN 06/30/20 Transfer to Outside Facility - Transfer Information Decision to Transfer Date: 10/03/20 Decision to Transfer Time: 05:41 Reason for Transfer: ICU Accepting Provider:: Dr. Dickerson Accepting Facility: [facility]
--- NOTE | 2020-10-03 01:06 | RAD ---
EXAM DESCRIPTION: XR Chest,1 View CLINICAL HISTORY: dyspnea, hypoxia TECHNIQUE: Single frontal view of the chest is submitted. COMPARISON: 06/30/2020 FINDINGS: Heart: The cardiothoracic silhouette is mildly enlarged, stable. Lungs: Minimal patchy right basilar opacification. Mediastinum: Unremarkable Pleura: No appreciable effusion. No pneumothorax. Bones: Intact Upper abdomen: Unremarkable Other: Tracheostomy tube remains in place. The balloon appears somewhat overinflated. IMPRESSION: 1. Minimal patchy right basilar opacification (atelectasis and/or infiltrate). 2. Tracheostomy balloon appears somewhat overinflated. Electronically signed by: Rosy Jimenez MD 10/03/2020 1:04 AM [employer]
[2020-10-03] MEDS ORDERED: SODIUM CHLORIDE 0.9% 1000ML 1,000 ML IVS ONE ×3 (01:24→04:13)
[2020-10-03] MEDS ORDERED: PIPERACILLIN/TAZOBACTAM 4.5 GM in SODIUM CHLORIDE 0.9% 100ML 100 ML IVPB ONE (01:54)
--- NOTE | 2020-10-03 02:27 | CT ---
EXAM: CTA Chest HISTORY: dyspnea, hypoxia, elevated d-dimer COMPARISON: 10/03/2020. 06/30/2020 TECHNIQUE: Contiguous axial CTA images of the chest were obtained from the thoracic inlet to the upper abdomen after administration of intravenous contrast followed by multiplanar reformats. 3-D postprocessing was performed. This exam was performed according to our departmental dose-optimization program, which includes automated exposure control, adjustment of the mA and/or kV according to patient size and/or use of iterative reconstruction technique. FINDINGS: There is adequate opacification of the pulmonary arterial vasculature. There is no evidence of pulmonary embolus. Heart size normal. No evidence of right heart strain. No pericardial effusion. No mediastinal adenopathy. Central airways are patent. Tracheostomy tube in satisfactory position. Great vessels are normal. Minimal dependent bibasilar atelectasis. No pneumothorax or pleural effusion. Limited visualization of upper abdominal contents is unremarkable for an acute process. No destructive osseous lesion. IMPRESSION: 1. No evidence of pulmonary embolus or other acute cardiopulmonary process. Electronically signed by: Cyrus Haley MD 10/03/2020 2:26 AM [employer]
--- NOTE | 2020-10-03 03:21 | CT ---
EXAM: CT Abdomen and Pelvis With Intravenous Contrast CLINICAL HISTORY: The patient is 35 years old and is Male; elevated T bili, lactic acid, nonverbal patient TECHNIQUE: Axial computed tomography images of the abdomen and pelvis with intravenous contrast. Sagittal and coronal reformatted images were created and reviewed. This CT exam was performed using one or more of the following dose reduction techniques: automated exposure control, adjustment of the mA and/or kV according to patient size, and/or use of iterative reconstruction technique. COMPARISON: CT chest 06/30/2020. FINDINGS: Lung bases: Bibasilar dependent atelectasis. ABDOMEN: Liver: Mildly nodular contour to the liver surface with caudate hypertrophy suggestive of cirrhosis. Gallbladder and bile ducts: Unremarkable. No calcified stones. No ductal dilation. Pancreas: Unremarkable. No mass. No ductal dilation. Spleen: Mild splenomegaly. Adrenals: Redemonstration of a 1.7 cm indeterminate left adrenal nodule. Kidneys and ureters: Unremarkable. No solid mass. No hydronephrosis. Stomach and bowel: Unremarkable. No obstruction. No mucosal thickening. PELVIS: Appendix: No findings to suggest acute appendicitis. Bladder: Unremarkable. No mass. Reproductive: Unremarkable as visualized. ABDOMEN and PELVIS: Intraperitoneal space: Unremarkable. No free air. No significant fluid collection. Bones/joints: No acute fracture. No dislocation. Soft tissues: Fat-containing ventral hernia. Vasculature: Splenic varices. No abdominal aortic aneurysm. Lymph nodes: Multiple prominent lymph nodes within the subcutaneous soft tissues of the lower pelvis/inguinal region bilaterally. Tubes, lines and devices: Gastrostomy tube. IMPRESSION: 1. Mildly nodular contour to the liver surface with caudate hypertrophy suggestive of cirrhosis. 2. Sequelae of portal hypertension including splenomegaly and splenic varices. 3. Redemonstration of a 1.7 cm indeterminate left adrenal nodule. Recommend follow-up abdominal CT or MR in 12 months. Alternatively, if there is a history of malignancy, consider further evaluation with PET, unenhanced abdominal CT or MR. 4. Fat-containing ventral hernia. 5. Gastrostomy tube. 6. Multiple prominent lymph nodes within the subcutaneous soft tissues of the lower pelvis/inguinal region bilaterally. Electronically signed by: Cooper Montano MD 10/03/2020 3:19 AM [facility]
[2020-10-03] MEDS ORDERED: VANCOMYCIN HCL INJ 1,000 MG, VANCOMYCIN HCL INJ 500 MG in SODIUM CHLORIDE 0.9% 250ML 25... IVPB ONE (04:13)
[2020-10-03 05:31] VITALS: TEMP 97.9
[2020-10-03 05:48] VITALS: BP 107/59; O2SAT 100
== END 2020-10-03 06:05 | disposition home or self-care (01) ==
LOC: ER 00:14
DX: A41.9 Sepsis, unspecified organism (principal); R65.21 Severe sepsis with septic shock; R00.0 Tachycardia, unspecified; E87.2 Acidosis; R40.3 Persistent vegetative state; E11.9 Type 2 diabetes mellitus without complications; I10 Essential (primary) hypertension; K70.30 Alcoholic cirrhosis of liver without ascites; J44.9 Chronic obstructive pulmonary disease, unspecified; Z20.828 Contact with and (suspected) exposure to other viral communicable diseases; Z93.1 Gastrostomy status; Z99.11 Dependence on respirator [ventilator] status; Z86.74 Personal history of sudden cardiac arrest; Z79.899 Other long term (current) drug therapy; Z79.84 Long term (current) use of oral hypoglycemic drugs; Z87.01 Personal history of pneumonia (recurrent)
CPT/HCPCS: 71045; 71275; 74177; 80053; 81001; 83605; 83880; 85025; 85379; 85610; 85730; 87040; 87502; 87635; 93005; 94002; J2543; J3370; J7030; J7050